=== PATIENT | male | born 1995 | race Caucasian/White ===

== ENCOUNTER 2022-06-09 03:37 | Emergency (ER) | payer SELFPAY ==
[2022-06-09] MEDS ORDERED: Bacitracin 1 PK ONE (04:24)
[2022-06-09] MEDS ORDERED: Boostrix 0.5 ML (Tdap) VIAL (>/=7 yrs of age) ONE (04:34)
== END 2022-06-09 04:30 | disposition home or self-care (01) ==
LOC: CSHERS 03:37
DX: S61.202A Unspecified open wound of right middle finger without damage to nail, initial encounter (principal); W22.8XXA Striking against or struck by other objects, initial encounter
CPT/HCPCS: 90471; 90715; 99283